=== PATIENT | female | born 1990 | race Caucasian/White ===

== ENCOUNTER 2020-10-07 22:42 | Emergency (ER) | payer MEDICAID ==
[~2020-10-07] VITALS: Ht 172.7 cm; Wt 63.5 kg
--- NOTE | 2020-10-07 23:02 | NUR ---
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 denied diarrhea. pt was placed in bed 7 er on monitor, vss.
[2020-10-07] MEDS ORDERED: METOCLOPRAMIDE HCL 10 MG/2 ML VIAL ONE (23:19)
[2020-10-07] MEDS ORDERED: HYDROMORPHONE 1 MG/1 ML DISP.SYRIN ONE ×2 (23:19→23:51)
[2020-10-07] MEDS ORDERED: diphenhydrAMINE HCL 50 MG/ML VIAL ONE (23:19)
[2020-10-07 23:23] LABS: BASOPHILS % (AUTO) 0.6 % (0.0-2.0); EOSINOPHILS % (AUTO) 0.3 % (0.0-6.0); HEMATOCRIT 40 % (33-45); HEMOGLOBIN 13.4 g/dL (11.5-14.8); LYMPHOCYTES # (AUTO) 1.9 /CMM (0.8-4.8); LYMPHOCYTES % (AUTO) 23.3 % (20.0-44.0); MEAN CORPUSCULAR HGB CONC 33 g/dl (31.0-36.0); MEAN CORPUSCULAR VOLUME 93 fL (82-100); MONOCYTES # (AUTO) 0.5 /CMM (0.1-1.30); MONOCYTES % (AUTO) 5.7 % (2.0-12.0); NEUTROPHILS # (AUTO) 5.9 /CMM (1.8-8.9); NEUTROPHILS % (AUTO) 70.1 % (43.0-81.0); PLATELET COUNT (AUTO) 240 /CMM (150-450); RED BLOOD CELL COUNT(AUTO) 4.33 MIL/uL (4.0-5.2); WHITE BLOOD COUNT (AUTO) 8.4 K/uL (4.3-11.0)
[2020-10-07 23:29] LABS: BILIRUBIN,URINE Negative (NEGATIVE); COLOR,URINE YELLOW (YELLOW); LEUKOCYTE ESTERASE ,URINE Negative (NEGATIVE); NITRITE, URINE Negative (NEGATIVE); PH,URINE 8.5 (5.0-8.0); PROTEIN,URINE Trace mg/dl (NEGATIVE); UGLUCOSE Negative (NEGATIVE); UROBILINOGEN,URINE 0.2 EU/dL (0.2)
[2020-10-07] MEDS ORDERED: METOCLOPRAMIDE HCL 10 MG/2 ML VIAL IV ONE (23:30)
[2020-10-07] MEDS ORDERED: HYDROMORPHONE INJ 2 MG/ML DISP.SYRIN IV ONE (23:30)
[2020-10-07] MEDS ORDERED: IV NS 0.9% 1,000 ML BAG IV ONE (23:30)
[2020-10-07] MEDS ORDERED: diphenhydrAMINE HCL 50 MG/ML VIAL IV ONE (23:30)
[2020-10-07 23:36] LABS: ALBUMIN 4.3 g/dL (3.4-5.0); BILIRUBIN,DIRECT 0.1 mg/dL (0.0-0.2); BILIRUBIN,TOTAL 0.4 mg/dL (0.2-1.0); CALCIUM, SERUM 9.2 mg/dL (8.5-10.1); POTASSIUM 3.8 mmol/L (3.5-5.1); TOTAL PROTEIN, SERUM 7.8 g/dL (6.4-8.2)
[2020-10-07 23:42] LABS: BACTERIA,URINE Rare /HPF (None Seen); RBC,URINE NONE SEEN /HPF (0-2); SQUAMOUS EPITHELIAL CELL,UR Few /HPF (None Seen); WBC,URINE NONE SEEN /HPF (0-3)
--- NOTE | 2020-10-08 | NUR ---
US teck at bed side
[2020-10-08] MEDS ORDERED: CT SWABBABLE VALVE TRANS SET 1 EA INFUS.SET MC ONE (00:23)
[2020-10-08] MEDS ORDERED: IOHEXOL-300 100 ML VIAL IV ONE (00:23)
[2020-10-08] MEDS ORDERED: IV NS 0.9% 250 ML IV ONE (00:23)
--- NOTE | 2020-10-08 00:24 | NUR ---
BROUGHT TO CT
--- NOTE | 2020-10-08 00:37 | NUR ---
back from ct
[2020-10-08] MEDS ORDERED: KETOROLAC TROMETHAMINE INJ 30 MG/ML VIAL IV ONE (02:30)
[2020-10-08] MEDS ORDERED: KETOROLAC TROMETHAMINE INJ 30 MG/ML VIAL ONE (02:37)
--- NOTE | 2020-10-08 03:18 | NUR ---
[place] ([facility]) [phone]
--- NOTE | 2020-10-08 04:43 | NUR ---
BONG BELL TALKING TO DR. SHEETS REGARDING PT.
--- NOTE | 2020-10-08 05:31 | NUR ---
Patient is resting comfortably in bed with eyes closed. Easily aroused. VSS
--- NOTE | 2020-10-08 08:33 | NUR ---
CALLED [facility] [phone] SHE IS DRIVING AND TO CALL HER IN 30 MINS FOR BED.
--- NOTE | 2020-10-08 09:12 | NUR ---
ABI MCLEAN [phone] FAX [phone] AND [phone] FOR TRANSFER ARRANGEMENT.
--- NOTE | 2020-10-08 09:31 | NUR ---
[employer]GER VANESA [phone]
--- NOTE | 2020-10-08 09:44 | NUR ---
VANESA FAX [phone] TEL [phone]
--- NOTE | 2020-10-08 10:12 | NUR ---
CALLED TRAN[facility]ORT [facility] 1130 WITH AUTH NUMBER [id number]
--- NOTE | 2020-10-08 10:20 | NUR ---
[facility] 2242
--- NOTE | 2020-10-08 10:42 | NUR ---
Called for report at [facility] given to Corine STALEY going to room 2242.
[2020-10-08] MEDS ORDERED: HYDROMORPHONE 1 MG/1 ML DISP.SYRIN ONE (10:59)
[2020-10-08] MEDS ORDERED: HYDROMORPHONE 1 MG/1 ML DISP.SYRIN IV ONE ×2 (11:00)
[2020-10-08 11:48] VITALS: BP 123/61
== END 2020-10-08 11:48 | disposition short-term general hospital (02) ==
LOC: ER 22:42
DX: R10.31 Right lower quadrant pain (principal); R11.2 Nausea with vomiting, unspecified; Z20.828 Contact with and (suspected) exposure to other viral communicable diseases
CPT/HCPCS: 36415; 76856; 80048; 80076; 81001; 83690; 84702; 85025; 85730; 87081; 93005; 96361; 96374; 96375; 99285; J1170 ×2; J1200; J1885; J2765; J7030; J7050; Q9967